=== PATIENT | male | born 1965 | race Caucasian/White ===

== ENCOUNTER → 2025-07-29 10:42 | Outpatient (CLI) | payer BC, SELFPAY ==
--- NOTE | 2025-07-29 10:47 | DI.RAD.S_ITS ---
PROCEDURE: XR DEXA AXIAL SKELETON
== END ==
LOC: RAD 10:47
PROVIDERS: PCP Family Medicine; Referring Provider Family Medicine; Visit Provider Family Medicine
DX: C61 Malignant neoplasm of prostate (principal); M85.852 Other specified disorders of bone density and structure, left thigh
CPT/HCPCS: 77080